=== PATIENT | male | born 1950 | race African-American/Black ===

== ENCOUNTER 2018-02-22 15:26 | Inpatient (IN) | payer MEDICARE, OTHER ==
[~2018-02-22] VITALS: Ht 177.8 cm; Wt 83.3 kg
[~2018-02-22 15:26] MED LIST: ACETAMINOPHEN325 M1 PEG; AMANTADINE100 M1 PO; AMANTADINE50 MG/5 ML PEG; AMLODIPINE BESY10 MG PEG; ATENOLOL25 MG PO; DAILY VITAMIN1 EAC3 PEG; DOCUSATE SODIU100 M1 PEG; DULCOLAX SUPP10 MG RC; FAMOTIDINE20 MG PEG; HUMULIN N100 UNITS/ SC; HYDRALAZINE HCL25 MG PEG; LABETALOL HCL100 MG PEG; LANTUS100 UNITS/ SC; LYRICA25 MG PO; NYSTATIN100000 UNI PEG; PANTOPRAZOLE SO40 MG PO; SENNA8.6 MG PEG; TAMSULOSIN HCL0.4 MG PO; ZOLOFT50 MG PO
[2018-02-22] MEDS ORDERED: CEFTRIAXONE SOD 1 GM VIAL IV STA (15:46)
[2018-02-22] MEDS ORDERED: SODIUM CHLORIDE 0.9% 1000ML 1,000 ML IV STA ×2 (15:46→15:58)
[2018-02-22 16:33] LABS: BASOPHILS % 0.5 % (0.0-1.0); EOSINOPHILS # (AUTO) 0.2 (0.0-0.4); EOSINOPHILS % 4.4 % (0.0-6.0); HEMATOCRIT 34.8 % (38.2-49.6); HEMOGLOBIN 11.6 g/dL (14.0-18.0); LYMPHOCYTES # (AUTO) 1.1 (1.0-3.2); LYMPHOCYTES % 29.3 % (18.0-39.1); MEAN CORPUSCULAR HEMOGLOBIN 28.9 pg (28-32); MEAN CORPUSCULAR HGB CONC 33.3 g/dL (31-35); MEAN CORPUSCULAR VOLUME 86.8 fL (81-99); MONOCYTES # (AUTO) 0.4 (0.2-0.8); MONOCYTES % 9.9 % (4.4-11.3); NEUTROPHILS % 55.9 % (38.7-80.0); PLATELET COUNT 155 x10e3/uL (140-360); RED BLOOD COUNT 4.01 x10e6/uL (4.3-5.7); RED CELL DISTRIBUTION WIDTH 13.7 % (11.7-14.4)
[2018-02-22 16:40] LABS: INR 1.21; PARTIAL THROMBOPLASTIN TIME 31.1 seconds (23.8-35.5); PROTHROMBIN TIME 14.4 seconds (11.9-14.5)
[2018-02-22 16:46] LABS: ALANINE AMINOTRANSFERASE 22 IU/L (0-55); ALBUMIN 3.4 g/dL (3.5-5.0); ALBUMIN/GLOBULIN RATIO 0.9 (0.8-2.0); ALKALINE PHOSPHATASE 117 IU/L (40-150); BLOOD UREA NITROGEN 21 mg/dL (7-26); BUN/CREATININE RATIO 14 (6-25); CALCIUM 9.6 mg/dL (8.4-10.2); CARBON DIOXIDE 23 mmol/L (22-29); CHLORIDE 103 mmol/L (98-107); CREATINE KINASE 51 IU/L (30-200); CREATININE, SERUM 1.45 mg/dL (0.72-1.25); EST GLOMERULAR FILTRATION RATE 59 ML/MIN (60-); GLUCOSE 305 mg/dL (74-118); SODIUM 136 mmol/L (136-145)
--- NOTE | 2018-02-22 17:09 | Diagnostic Imaging Report ---
PROCEDURE: CHEST SINGLE (PORTABLE) COMPARISON: Patients [facility], DX, CHEST SINGLE (PORTABLE), 03/21/2016, 13:17. INDICATIONS: UTI, LETHARGIC, WEAKNESS, SUPRAPUBIC CATHETER LEAKING BLOOD AND SEDIMENT FINDINGS: LUNGS: Subsegmental atelectasis or infiltrate has developed in the left midlung field. Subtle air space opacity has developed in the inferior right lung field. Pulmonary vasculature is normal. No interstitial edema. PLEURA: No effusions or pneumothorax. HEART \T\ MEDIASTINUM: The heart is within normal size-limits. BONES \T\ SOFT TISSUES: No focal osseous lesions. Soft tissues are unremarkable. CONCLUSION: Infiltrate or subsegmental atelectasis in the left lung. Potential infiltrate in the right lung. Close interval follow-up is recommended with PA and lateral chest x-ray if clinically feasible. Dictated by: Anamika Christensen M.D. on 02/22/2018 at 17:12 Electronically approved by: Anamika Christensen M.D. on 02/22/2018 at 17:12
[2018-02-22] MEDS ORDERED: ATORVASTATIN CA10 MG PO (17:16)
[2018-02-22] MEDS ORDERED: LYRICA50 MG PO (17:16)
[2018-02-22] MEDS ORDERED: SINEMET 25-1001 EACH PEG (17:16)
[2018-02-22] MEDS ORDERED: LEVEMIR100 UNIT/1 SQ (17:16)
[2018-02-22] MEDS ORDERED: NOVOLOG100 UNITS1 SQ (17:16)
[2018-02-22 18:24] LABS: BILIRUBIN,URINE NEGATIVE (NEGATIVE); CLARITY,URINE TURBID (CLEAR); COLOR,URINE YELLOW (YELLOW); KETONES,URINE NEGATIVE (NEGATIVE); LEUKOCYTE ESTERASE ,URINE 2+ (NEGATIVE); NITRITE,URINE POSITIVE (NEGATIVE); PROTEIN,URINE DIPSTICK 2+ (NEGATIVE); URINE UROBILINOGEN 0.2 mg/dL (0.2 - 1)
[2018-02-22] MEDS ORDERED: ONDANSETRON HCL INJ 2 MG/ML VIAL IV PRN (18:30)
[2018-02-22] MEDS ORDERED: MORPHINE SULFATE 2 MG/ML SYR IV PRN (18:30)
[2018-02-22 18:35] LABS: BACTERIA,URINE MANY /HPF; MUCUS,URINE FEW (RARE); RBC,URINE 21-50 /HPF (0-5); WBC,URINE (MAN) >50 /HPF (0-5)
[2018-02-22] MEDS: CEFTRIAXONE SOD 1 GM VIAL IV SCH (18:35)
[2018-02-22] MEDS: SODIUM CHLORIDE 0.9% 1000ML 1,000 ML IV SCH (18:39)
[2018-02-22 20:55] VITALS: BP 159/83
[2018-02-22] MEDS ORDERED: DEXTROSE 50% SYRINGE 50 ML IV PRN (22:30)
[2018-02-22 23:12] VITALS: BP 159/83
[2018-02-22 23:16] VITALS: BP 159/83
[2018-02-23] VITALS (8 sets, daily range): BP systolic 124–144; BP diastolic 64–87
[2018-02-23] MEDS ORDERED: TAMSULOSIN HCL0.4 MG PO (00:02)
[2018-02-23] MEDS ORDERED: SERTRALINE HCL50 MG PO (00:02)
[2018-02-23] MEDS: SODIUM CHLORIDE 0.9% 1000ML 1,000 ML IV SCH ×3 (04:13→18:21)
[2018-02-23 06:13] LABS: BASOPHILS % 0.5 % (0.0-1.0); EOSINOPHILS # (AUTO) 0.2 (0.0-0.4); EOSINOPHILS % 4.4 % (0.0-6.0); HEMATOCRIT 30.8 % (38.2-49.6); HEMOGLOBIN 10.4 g/dL (14.0-18.0); LYMPHOCYTES # (AUTO) 1.3 (1.0-3.2); LYMPHOCYTES % 36.2 % (18.0-39.1); MEAN CORPUSCULAR HEMOGLOBIN 29.4 pg (28-32); MEAN CORPUSCULAR HGB CONC 33.8 g/dL (31-35); MONOCYTES # (AUTO) 0.5 (0.2-0.8); MONOCYTES % 13.2 % (4.4-11.3); NEUTROPHILS # (AUTO) 1.7 (2.1-6.9); NEUTROPHILS % 45.7 % (38.7-80.0); PLATELET COUNT 122 x10e3/uL (140-360); RED BLOOD COUNT 3.54 x10e6/uL (4.3-5.7); RED CELL DISTRIBUTION WIDTH 13.8 % (11.7-14.4)
[2018-02-23] MEDS: CEFTRIAXONE SOD 1 GM VIAL IV SCH ×2 (06:30→17:51)
[2018-02-23 06:40] LABS: ALANINE AMINOTRANSFERASE 54 IU/L (0-55); ALBUMIN 2.8 g/dL (3.5-5.0); ALBUMIN/GLOBULIN RATIO 0.9 (0.8-2.0); ALKALINE PHOSPHATASE 97 IU/L (40-150); ANION GAP 10.8 mmol/L (8-16); BLOOD UREA NITROGEN 18 mg/dL (7-26); BUN/CREATININE RATIO 16 (6-25); CALCIUM 8.8 mg/dL (8.4-10.2); CARBON DIOXIDE 22 mmol/L (22-29); CHLORIDE 110 mmol/L (98-107); CREATININE, SERUM 1.14 mg/dL (0.72-1.25); EST GLOMERULAR FILTRATION RATE > 60 ML/MIN (60-); GLUCOSE 303 mg/dL (74-118); POTASSIUM 3.8 mmol/L (3.5-5.1); SODIUM 139 mmol/L (136-145)
--- NOTE | 2018-02-23 06:52 | Diagnostic Imaging Report ---
EXAMINATION: CHEST SINGLE (PORTABLE) INDICATION: Infiltrate, possible pneumonia COMPARISON: February 22, 2018 FINDINGS: TUBES and LINES: None. LUNGS: Lungs are not well inflated. Bilateral linear opacities are compatible with atelectasis. PLEURA: No pleural effusion or pneumothorax. HEART AND MEDIASTINUM: The cardiomediastinal silhouette is unremarkable. BONES AND SOFT TISSUES: No acute osseous lesion. Soft tissues are unremarkable. UPPER ABDOMEN: No free air under the diaphragm. IMPRESSION: 1. No acute thoracic abnormality. 2. Bilateral platelike atelectasis. Signed by: Dr. Murray Griffin M.D. on 02/23/2018 6:49 AM
[2018-02-23] MEDS ORDERED: INSULIN REGULAR, HUMAN 100 UNIT/1 ML 3ML VIAL SQ SCH ×2 (07:30→12:30)
[2018-02-23] MEDS ORDERED: CARBIDOPA/LEVODOPA 25/100 TAB PEG SCH (09:00)
[2018-02-23] MEDS ORDERED: AMANTADINE HCL 100 MG PO SCH (09:00)
--- NOTE | 2018-02-23 09:34 | History and Physical ---
PRIMARY CARE PHYSICIAN: Dr. Silva CHIEF COMPLAINT: Bloody discharge from suprapubic catheter. HISTORY OF PRESENT ILLNESS: This is a 67-year-old man with a history of recurrent complicated urinary tract infection due to suprapubic catheter. Has been on multiple antibiotics, including IV vancomycin. Recently, changed his suprapubic catheter 1 week ago. Started on Bactrim, and now bloody material being discharged from the suprapubic catheter and found in the diaper. Brought to the hospital for further evaluation and management. Per his daughter, he has had recurrent infections, and now they have been occurring more often. Patient had a recent diagnosis of pneumonia, and now having productive cough. PAST MEDICAL HISTORY: Diabetes mellitus, type 2, stroke with residual left-sided weakness, ambulatory dysfunction and being bedbound, neurogenic bladder, status post suprapubic catheter placement, recurrent complicated urinary tract infections, pneumonia, BPH, and Parkinson disease. PAST SURGICAL HISTORY: Suprapubic catheter placement, back surgery, knee surgery, eye surgery. ALLERGIES: PER ELECTRONIC MEDICAL RECORD. FAMILY HISTORY/SOCIAL HISTORY: Patient is with 2 children. No alcohol or illicits. No cigarettes. Retired chemical processing supervisor. Ambulatory dysfunction and being bedbound. MEDICATIONS: Per electronic medical record. REVIEW OF SYSTEMS: Denies any dizziness, chest pain, fever, chills, sweats, nausea, vomiting, diarrhea. Denies any headache, blurred vision or chest pain. PHYSICAL EXAMINATION VITAL SIGNS: Have been reviewed. Blood pressure as low as 68/48, temperature as low as 96.2. GENERAL: A tired-appearing man resting in bed. HEENT: Anicteric. Pupils respond to light. No oral lesions. CARDIOVASCULAR: Normal S1 and S2. Regular rate and rhythm. LUNGS: Moderate breath sounds. ABDOMEN: Soft, nontender and nondistended. : He has a suprapubic catheter in place. Dressing is clean and dry. EXTREMITIES: No edema or calf tenderness. NEUROLOGICAL: He is alert and appropriate. He moves all extremities. Lower extremity 3/5 motor strength. SKIN: Dry. PSYCHIATRIC: Flat affect. LABS: Reviewed. MEDICATIONS: Reviewed. ASSESSMENT: A 67-year-old man with: 1. Complicated urinary tract infection. 2. Severe sepsis. 3. Diabetes mellitus, type 2. 4. Acute kidney injury. 5. Hyperlipidemia. 6. Parkinson disease. 7. Benign prostatic hyperplasia. 8. Ambulatory dysfunction and gait disturbance. 9. Acute bronchitis with possible early pneumonia. PLAN 1. Continue IV antibiotics. 2. Follow up cultures. 3. Blood cultures are pending. Obtain urine culture. 4. Physical therapy consultation. 5. Use azithromycin for acute bronchitis. 6. The patient has failed outpatient oral antibiotic therapy. Will continue IV antibiotics. Await cultures. 7. Add antitussive medications. 8. Will use Lovenox and Pepcid for DVT prophylaxis. 9. Disposition. Follow up cultures. Job#: [id number] RUFINA
--- NOTE | 2018-02-23 09:37 | History and Physical ---
ADDENDUM TO HISTORY AND PHYSICAL The patient also has stage-II buttock wound. We will consult wound care service. Job#: [id number] MAXIMILIANO
[2018-02-23] MEDS: PREGABALIN 50 MG CAP PO SCH ×2 (10:05→17:51)
[2018-02-23] MEDS: BENZONATATE 100 MG CAP PO SCH ×3 (10:05→20:50)
[2018-02-23] MEDS: AMANTADINE HCL 100 MG CAP PO SCH (10:05)
[2018-02-23] MEDS: AZITHROMYCIN 500MG/NS 250 ML 250 ML IV SCH (10:05)
[2018-02-23] MEDS: GUAIFENESIN 600MG/DEXTROMETHORPHAN 30MG TABSR PO SCH ×2 (10:05→17:51)
[2018-02-23] MEDS: SERTRALINE HCL 50 MG TAB PO SCH (10:05)
[2018-02-23] MEDS ORDERED: INSULIN LISPRO 100 UNIT/1 ML 3ML VIAL SQ SCH (11:30)
[2018-02-23] MEDS: INSULIN REGULAR, HUMAN 100 UNIT/1 ML 3ML VIAL SQ SCH ×3 (11:30→21:00)
[2018-02-23] MEDS ORDERED: DEXTROSE 50% SYRINGE 50 ML IV PRN (11:45)
[2018-02-23] MEDS: CARBIDOPA/LEVODOPA 25/100 TAB PO SCH ×2 (14:41→20:50)
[2018-02-23] MEDS: BALSAM PERU/CASTOR OIL 60 GM OINT...G. TP SCH (17:00)
[2018-02-23] MEDS: FAMOTIDINE 20 MG TAB PO SCH (17:51)
[2018-02-23] MEDS: ENOXAPARIN SOD INJ 40 MG/0.4 ML SYR SC SCH (17:51)
[2018-02-23] MEDS ORDERED: ATORVASTATIN 10 MG TAB PO SCH (21:00)
[2018-02-23] MEDS ORDERED: TAMSULOSIN HCL 0.4 MG CAP PO SCH (21:00)
[2018-02-23] MEDS ORDERED: NON-FORMULARY MEDICATION (Insulin Detemir (Levemir) 30 UNITS) SQ SCH (21:00)
[2018-02-23] MEDS ORDERED: INSULIN DETEMIR 100 UNIT/ML PEN SQ SCH (21:00)
[2018-02-24] VITALS (7 sets, daily range): BP systolic 129–162; BP diastolic 72–87
[2018-02-24] MEDS: SODIUM CHLORIDE 0.9% 1000ML 1,000 ML IV SCH ×2 (06:04→12:47)
[2018-02-24] MEDS: CEFTRIAXONE SOD 1 GM VIAL IV SCH ×2 (06:04→17:26)
[2018-02-24 07:30] LABS: CHOL/HDL RATIO 2.5 (3.9-4.7)
--- NOTE | 2018-02-24 08:30 | Progress Note ---
DATE: February 24, 2018 TIME: 8 a.m. OVERNIGHT: No events. REVIEW OF SYSTEMS: Denies any dizziness or chest pain. PHYSICAL EXAMINATION VITAL SIGNS: Reviewed. GENERAL: A tired-appearing man resting in bed. HEENT: Anicteric. CARDIOVASCULAR: Normal S1 and S2. LUNGS: Moderate breath sounds. ABDOMEN: Soft, nontender and nondistended. : He has a suprapubic catheter in place. Dressing clean and dry. EXTREMITIES: No edema or calf tenderness. NEUROLOGICAL: Alert and appropriate. Moving all extremities. Lower extremity is 3/5 motor strength. SKIN: Dry. PSYCHIATRIC: Flat affect. LABS: Reviewed. MEDICATIONS: Reviewed. ASSESSMENT: A 67-year-old man with: 1. Complicated urinary tract infection. 2. Severe sepsis. 3. Diabetes mellitus, type 2. 4. Acute kidney injury. 5. Hyperlipidemia. 6. Parkinson disease. 7. BPH. 8. Ambulatory dysfunction and gait disturbance. 9. Acute bronchitis with possible early pneumonia. 10. Stage 2 sacral ulcer. PLAN 1. Continue IV antibiotics. 2. Follow up cultures. 3. Continue physical therapy. 4. Continue antitussive medication. 5. Renal function improving. 6. Hemoglobin A1c 8.8, LDL is 51 and triglycerides 74. 7. All cultures remain negative. 8. Continue local wound care and frequent turns for sacral ulcer. 9. The patient has a staphylococcus infection in the urine. Follow up speciation and sensitivity. 10. Discharge planning to skilled versus LTAC facility. Job#: [id number] MI
[2018-02-24] MEDS: CARBIDOPA/LEVODOPA 25/100 TAB PO SCH ×2 (08:34→17:26)
[2018-02-24] MEDS: BENZONATATE 100 MG CAP PO SCH ×2 (08:34→17:26)
[2018-02-24] MEDS: AZITHROMYCIN 500MG/NS 250 ML 250 ML IV SCH (08:34)
[2018-02-24] MEDS: PREGABALIN 50 MG CAP PO SCH ×2 (08:34→17:26)
[2018-02-24] MEDS: SERTRALINE HCL 50 MG TAB PO SCH (08:34)
[2018-02-24] MEDS: GUAIFENESIN 600MG/DEXTROMETHORPHAN 30MG TABSR PO SCH ×2 (08:34→17:26)
[2018-02-24] MEDS: FAMOTIDINE 20 MG TAB PO SCH ×2 (08:34→17:26)
[2018-02-24] MEDS: BALSAM PERU/CASTOR OIL 60 GM OINT...G. TP SCH ×2 (08:34→17:26)
[2018-02-24] MEDS: AMANTADINE HCL 100 MG CAP PO SCH (08:34)
[2018-02-24] MEDS: INSULIN LISPRO 100 UNIT/1 ML 3ML VIAL SQ SCH ×3 (08:35→16:30)
[2018-02-24] MEDS: INSULIN REGULAR, HUMAN 100 UNIT/1 ML 3ML VIAL SQ SCH ×3 (08:36→16:30)
[2018-02-24] MEDS: ENOXAPARIN SOD INJ 40 MG/0.4 ML SYR SC SCH (17:26)
--- NOTE | 2018-02-25 15:03 | Discharge Summary ---
PRINCIPAL DIAGNOSES 1. Complicated urinary tract infection. 2. Severe sepsis. 3. Methicillin-resistant Staphylococcus aureus infection of the urine. 4. Diabetes mellitus, type 2. 5. Acute kidney injury. 6. Hyperlipidemia. 7. Parkinson disease. 8. Ambulatory dysfunction with gait disturbance. 9. Acute bronchitis. 10. Sacral ulcer, stage II. SECONDARY DIAGNOSIS: Diabetes mellitus, type 2. CHIEF COMPLAINT: Confusion. HISTORY OF PRESENT ILLNESS: This is a 67-year-old man with confusion. Please refer to the H and P for further details. HOSPITAL COURSE: The patient had a complicated urinary tract infection and severe sepsis with MRSA infection of the urine treated with IV antibiotics. Transitioned to LTAC facility for continued IV antibiotics. Also had diabetes mellitus, type 2. Hemoglobin A1c was 8.8, LDL 51, triglycerides 74. Parkinson disease. Received physical therapy for ambulatory dysfunction and gait disturbance. He had acute bronchitis treated with medication regimen. Doing better. He had sacral ulcer, stage II, needs continued local wound care. DISCHARGE MEDICATIONS: Per electronic medical record. FOLLOWUP: With primary care doctor in 1 week. DISCHARGE LOCATION: LTAC facility. JANES PHILLIPS MD Job#: [id number]
== END 2018-02-24 20:44 | DRG 698 ==
LOC: ER 15:26 → ERHOLD 18:53 → MED/SURG3 21:15
PROVIDERS: ADMIT Internal Medicine; ATTEND Internal Medicine
DX: T83.518A Infection and inflammatory reaction due to other urinary catheter, initial encounter (principal); A41.02 Sepsis due to Methicillin resistant Staphylococcus aureus; J15.9 Unspecified bacterial pneumonia; R65.20 Severe sepsis without septic shock; N30.01 Acute cystitis with hematuria; N17.9 Acute kidney failure, unspecified; I69.354 Hemiplegia and hemiparesis following cerebral infarction affecting left non-dominant side; D29.1 Benign neoplasm of prostate; E11.8 Type 2 diabetes mellitus with unspecified complications; Z87.891 Personal history of nicotine dependence; Z82.49 Family history of ischemic heart disease and other diseases of the circulatory system; G20 Parkinson's disease; J20.9 Acute bronchitis, unspecified; E78.5 Hyperlipidemia, unspecified; R26.9 Unspecified abnormalities of gait and mobility; D64.9 Anemia, unspecified; R33.9 Retention of urine, unspecified; L89.152 Pressure ulcer of sacral region, stage 2; L89.322 Pressure ulcer of left buttock, stage 2; L89.312 Pressure ulcer of right buttock, stage 2
CPT/HCPCS: 36415; 71045; 80053; 80061; 81001; 82550; 82553; 82948; 83036; 83605; 84484; 85025; 85610; 85730; 87040; 87086; 87186; 93005; 96361; 97139; 99284; J0456; J0696; J1650; J7030; J7799